=== PATIENT | female | born 1985 | race Two or more races ===

== ENCOUNTER 2016-06-05 20:20 | Emergency (ER) | payer MEDICAID ==
[~2016-06-05] VITALS: Ht 165.1 cm; Wt 74.8 kg
[2016-06-05 21:06] LABS: Basophils # (auto) 0.1 uL; Basophils % (auto) 1.1 % (0.0-2.0); DEFINITIVE VIEW TRANSMISSION; Eosinophils # (auto) 0.2 uL; Eosinophils % (auto) 2.5 % (0.0-7.0); Hemoglobin 13.1 g/dL (12.2-16.2); Lymphocytes # (auto) 3.3 uL; Mean Corpuscular Hgb Conc. 31.1 g/dL (32.0-36.0); Mean Corpuscular Volume 86.7 fL (80.0-100.0); Mean Platelet Volume 7.8 fL (7.4-10.4); Monocytes # (auto) 0.5 uL; Monocytes % (auto) 6.5 % (0.0-12.0); Neutrophils # (auto) 3.8 uL; Neutrophils % (auto) 47.9 % (37.0-80.0); Platelet Count (auto) 382 10^3/uL (140-450); Red Cell Distribution Width 16.8 % (11.6-16.0); White Blood Cell 7.8 10^3/uL (4.4-10.8)
[2016-06-05 21:18] LABS: Albumin 3.3 g/dL (3.4-5.0); BUN/Creatinine Ratio 7.9; Calcium 8.4 mg/dL (8.5-10.1); Potassium 3.3 mmol/L (3.5-5.1)
[2016-06-05 21:20] LABS: Bilirubin, Total 0.2 mg/dL (0.2-1.0); Total Protein 7.7 g/dL (6.4-8.2)
[2016-06-06 04:15] VITALS: BP 149/69
== END 2016-06-06 04:24 | disposition home or self-care (01) ==
LOC: ER 20:22
DX: T83.098A Other mechanical complication of other urinary catheter, initial encounter (principal); F15.10 Other stimulant abuse, uncomplicated; F17.210 Nicotine dependence, cigarettes, uncomplicated; Y93.89 Activity, other specified; Y99.8 Other external cause status; Y92.89 Other specified places as the place of occurrence of the external cause; Z43.6 Encounter for attention to other artificial openings of urinary tract; Z87.442 Personal history of urinary calculi
CPT/HCPCS: 36415; 80053; 85025

== ENCOUNTER 2016-09-10 22:57 | Observation (INO) | payer MEDICAID ==
[~2016-09-10] VITALS: Ht 167.6 cm; Wt 63.5 kg
[2016-09-10 23:48] LABS: DEFINITIVE VIEW TRANSMISSION; Hematocrit 39.5 % (36.0-46.0); Hemoglobin 12.7 g/dL (12.2-16.2); Mean Corpuscular Hemoglobin 28.8 pg (28.0-32.0); Mean Corpuscular Hgb Conc. 32.2 g/dL (32.0-36.0); Mean Corpuscular Volume 89.3 fL (80.0-100.0); Mean Platelet Volume 7.4 fL (7.4-10.4); Platelet Count (auto) 341 10^3/uL (140-450); Red Cell Distribution Width 18.6 % (11.6-16.0); SUSPECT VIEW TRANSMISSION; White Blood Cell 7.4 10^3/uL (4.4-10.8)
[2016-09-10 23:56] LABS: Metamyelocytes % 0; Myelocytes % 0; Promyelocytes % 0; Reactive Lymphocytes 0
[2016-09-11 00:12] LABS: Albumin 3.8 g/dL (3.4-5.0); BUN/Creatinine Ratio 5.8; Calcium 8.3 mg/dL (8.5-10.1); Potassium 3.5 mmol/L (3.5-5.1)
[2016-09-11 00:15] LABS: Bilirubin, Total 0.5 mg/dL (0.2-1.0)
[2016-09-11 00:37] LABS: Hypersegmented Neutrophils Present; Platelet Estimate Adequate; RBC Morphology Normal
[2016-09-11 01:27] LABS: Urine Bilirubin Negative (Negative); Urine Color Yellow (Yellow); Urine Glucose Normal (Normal); Urine Ketone Negative (Negative); Urine Nitrite Negative (Negative); Urine RBC 39 /hpf (0 - 4); Urine Squamous Epithelial Cell FEW /hpf (<5); Urine Urobilinogen Normal (Negative); Urine WBC Clumps PRESENT /hpf (None Seen); Urine pH 6.5 (5.0-8.0)
[2016-09-11 01:28] LABS: Urine Blood 2+ /uL (Negative)
[2016-09-11 08:15] VITALS: BP 123/90
[2016-09-11] MEDS ORDERED: NITROFURANTOIN (MONO) 100 mg CAP PO ONE (09:00)
== END 2016-09-11 09:50 | disposition home or self-care (01) | DRG 463 ==
LOC: ER 22:57 → OVERFLOW 22:58 → ER 09-11 09:49
PROVIDERS: ADMIT Emergency Medicine; ATTEND Emergency Medicine
DX: N30.00 Acute cystitis without hematuria (principal); F10.120 Alcohol abuse with intoxication, uncomplicated; Z87.442 Personal history of urinary calculi; F17.210 Nicotine dependence, cigarettes, uncomplicated
CPT/HCPCS: 36415; 80053; 80307; 81001; 81025; 85007; 85027; 99285; G0378